=== PATIENT | male | born 1960 | race Caucasian/White ===

== ENCOUNTER → 2018-08-15 | Outpatient (CLI) | payer BC ==
--- NOTE | 2018-08-15 17:24 | CT ---
EXAMINATION TYPE: CT iac w con DATE OF EXAM: 08/15/2018 COMPARISON: None HISTORY: hearing loss, ringing in ears CT DLP: 150 mGycm Automated exposure control for dose reduction was used. Helical imaging through the internal auditory canals. Coronal reconstructions. CONTRAST: CT scan of the IACs is performed with IV Contrast, patient injected with 100 mL of Isovue 300. FINDINGS: The external auditory canals are patent bilaterally. Mastoid air cells show minimal inflam matory change on the right in the caudal aspect. Some mild erosive disease present within the bilate ral maxillary sinuses. The middle ear ossicles are symmetric and unremarkable. There is no evidence of suspicious surrounding soft tissue density to suggest cholesteatoma. The scutum is preserved bila terally. The cochlea and the semicircular canals are symmetric and unremarkable. Vestibular aqueduc t and internal carotid canal appear unremarkable. Temporomandibular joints are maintained bilaterall y. IMPRESSION: Mild sinus disease. Minimal opacities within the mastoid air cells as described
== END | disposition home or self-care (01) ==
LOC: RADCTMAIN 14:29
PROVIDERS: ATTEND Otolaryngology
DX: H91.90 Unspecified hearing loss, unspecified ear (principal)
CPT/HCPCS: 70481; Q9967

== ENCOUNTER → 2021-11-03 | Outpatient (CLI) | payer BC ==
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
== END | disposition home or self-care (01) ==
LOC: RADCTMAIN 11:00
PROVIDERS: ATTEND Family Medicine
DX: M54.2 Cervicalgia (principal); R51.9 Headache, unspecified; V89.2XXA Person injured in unspecified motor-vehicle accident, traffic, initial encounter
CPT/HCPCS: 70450; 72125

== ENCOUNTER → 2024-08-01 | Outpatient (CLI) | payer BC ==
--- NOTE | 2024-08-05 13:20 | US ---
EXAMINATION TYPE: US prostate transrectal DATE OF EXAM: 08/01/2024 COMPARISON: NONE CLINICAL INDICATION: Male, 64 years old with history of R97.20 ELEVATED PROSTATE SPECIFIC ANTIGEN [PS A]; PSA 4.5 This examination was performed using the transrectal probe. EXAM MEASUREMENTS: Gland Size: 5.2 x 3.4 x 5.1 Volume: 47.2 Predicted PSA: 5.6 Actual PSA (if available):4.5 Anechoic area seen 1.1 x .8 x .8 cm. There is ill-defined hypoechoic area within the prostate measuring 1.3 cm. A smaller 0.5 cm area is a lso present on the contralateral side. These are identified on the transverse images but not well-vis ualized in the sagittal planes. IMPRESSION: 1. Couple of ill-defined hypoechoic areas within the right and left lobes of the prostate. Consider u rology consultation for biopsy Predicted PSA = volume x 0.12 ng/ml Calculated Volume = 0.5236 x L x W x [facility], , 08/05/2024 1:18 PM
== END | disposition home or self-care (01) ==
LOC: RADUSWWP 10:02
PROVIDERS: ATTEND Family Medicine
DX: R97.20 Elevated prostate specific antigen [PSA] (principal)
CPT/HCPCS: 76872